=== PATIENT | female | born 1970 | race Caucasian/White ===

== ENCOUNTER 2019-02-06 15:01 | Emergency (ER) | payer OTHER ==
[~2019-02-06] VITALS: Ht 172.7 cm; Wt 65.8 kg
[2019-02-06] MEDS ORDERED: ENBREL50 MG/1 M1 (15:29)
== END 2019-02-06 17:45 | disposition home or self-care (01) ==
LOC: ER 15:01
DX: L73.2 Hidradenitis suppurativa (principal)